=== PATIENT | female | born 1995 | race African-American/Black ===

== ENCOUNTER 2016-07-10 18:21 | Emergency (ER) | payer MEDICAID ==
[2014-11-21 12:01] VITALS: BMI 300.4
[~2016-07-10 18:21] MED LIST: CITRATE OF MAG300 ML PO; DEMEROL 50 M50 MG/ML IM; IBUPROFEN600 MG PO; PERCOCET 5-3251 TAB PO; PHENERGAN25 MG/ML IM
== END 2016-07-10 19:33 | disposition home or self-care (01) ==
LOC: D.ER 18:21
DX: J01.90 Acute sinusitis, unspecified (principal); I10 Essential (primary) hypertension

== ENCOUNTER 2016-07-23 22:22 | Emergency (ER) | payer MEDICAID ==
[2014-11-21 12:01] VITALS: BMI 300.4
[2016-07-23 22:58] LABS: APPEARANCE CLEAR (CLEAR); BILIRUBIN NEGATIVE (NEGATIVE); COLOR YELLOW (YELLOW); GLUCOSE NEGATIVE (NEGATIVE); KETONE NEGATIVE (NEGATIVE); NITRITE NEGATIVE (NEGATIVE); PROTEIN NEGATIVE (NEGATIVE); SPECIFIC GRAVITY 1.015 (1.005-1.020); UROBILINOGEN NORMAL (NORMAL)
[2016-07-23 23:01] LABS: BACTERIA FEW /hpf (NONE SEEN); LEUKOCYTE ESTERASE TRACE (NEGATIVE); RED CELLS - URINE OCC /hpf (0-5)
[2016-07-23 23:02] LABS: MUCUS <1+ /lpf (NONE SEEN)
[2016-07-24 00:21] LABS: BASOPHILS 0.1 % (0.0-2.0); HEMATOCRIT 41.1 % (36.0-48.0); HEMOGLOBIN 14.1 g/dL (12-16); IMMATURE GRANULOCYTES 0.1 % (0-5); LYMPHOCYTES 32.3 % (15-50); MCH 31.6 pg (26.0-34.0); MCHC 34.3 g/dL (31.0-37.0); MCV 92.2 fL (80.0-100.0); MEAN PLATELET VOLUME 10.6 fL (7.4-10.4); MONOCYTES 5.9 % (2-11); NEUTROPHILS 60.6 % (40-80); PLATELET COUNT 258 10x3/uL (130-400); RBC 4.46 10x6/uL (4.00-5.40); RDW 13.1 % (11.5-14.5); WBC 7.1 10x3/uL (4.8-10.8)
[2016-07-24 00:36] LABS: ALBUMIN 3.4 g/dL (3.4-5.0); ALKALINE PHOSPHATASE 60 U/L (46-116); ALT (SGPT) 16 U/L (10-68); BILIRUBIN - TOTAL 0.32 mg/dL (0.2-1.3); CALC OSMOLALITY 272 mosm/kg (275-300); CALCIUM 8.8 mg/dL (8.5-10.1); CARBON DIOXIDE 25.9 mmol/L (21.0-32.0); CHLORIDE - SERUM 103 mmol/L (98-107); CREATININE - SERUM 0.7 mg/dL (0.6-1.3); GLUCOSE 86 mg/dL (74-106); POTASSIUM - SERUM 3.7 mmol/L (3.5-5.1); PROTEIN - SERUM 7.6 g/dL (6.4-8.2); SODIUM 138 mmol/L (136-145); UREA NITROGEN 6 mg/dL (7-18); eGFR NON AFRICAN AMERICAN > 90 mL/min (90-120)
[2016-07-24 01:07] LABS: HCG - QUANTITATIVE (MATERNAL) 9913 mIU/mL
== END 2016-07-24 02:15 | disposition home or self-care (01) ==
LOC: D.ER 22:22
PROVIDERS: Emergency Medicine
DX: R10.9 Unspecified abdominal pain (principal); I10 Essential (primary) hypertension

== ENCOUNTER 2016-09-12 20:50 | Emergency (ER) | payer MEDICAID ==
[2014-11-21 12:01] VITALS: BMI 300.4
[2016-09-12 23:35] LABS: HEMATOCRIT 37.5 % (36.0-48.0); HEMOGLOBIN 12.8 g/dL (12-16); LYMPHOCYTES 30.4 % (15-50); MCH 31.2 pg (26.0-34.0); MCHC 34.1 g/dL (31.0-37.0); MCV 91.5 fL (80.0-100.0); MEAN PLATELET VOLUME 10.7 fL (7.4-10.4); NEUTROPHILS 62.9 % (40-80); PLATELET COUNT 230 10x3/uL (130-400); RDW 12.9 % (11.5-14.5); WBC 7.2 10x3/uL (4.8-10.8)
[2016-09-12 23:46] LABS: APPEARANCE CLEAR (CLEAR); BILIRUBIN NEGATIVE (NEGATIVE); COLOR YELLOW (YELLOW); GLUCOSE NEGATIVE (NEGATIVE); KETONE NEGATIVE (NEGATIVE); LEUKOCYTE ESTERASE NEGATIVE (NEGATIVE); NITRITE NEGATIVE (NEGATIVE); PROTEIN NEGATIVE (NEGATIVE); UROBILINOGEN NORMAL (NORMAL)
[2016-09-12 23:47] LABS: BACTERIA NONE SEEN /hpf (NONE SEEN); CALCIUM OXALATE CRYSTALS 0-5 /hpf (NONE SEEN); EPITHELIAL CELLS 0-5 /hpf (0-5); RED CELLS - URINE 0-5 /hpf (0-5); WHITE CELLS - URINE NSEEN /hpf (0-5)
[2016-09-13] LABS: ALBUMIN 3.1 g/dL (3.4-5.0); ALKALINE PHOSPHATASE 64 U/L (46-116); ALT (SGPT) 17 U/L (10-68); CALC OSMOLALITY 272 mosm/kg (275-300); CARBON DIOXIDE 23.7 mmol/L (21.0-32.0); CHLORIDE - SERUM 103 mmol/L (98-107); CREATININE - SERUM 0.7 mg/dL (0.6-1.3); GLUCOSE 80 mg/dL (74-106); POTASSIUM - SERUM 3.7 mmol/L (3.5-5.1); PROTEIN - SERUM 7.3 g/dL (6.4-8.2); SODIUM 138 mmol/L (136-145); UREA NITROGEN 7 mg/dL (7-18); eGFR NON AFRICAN AMERICAN > 90 mL/min (90-120)
== END 2016-09-13 00:43 | disposition home or self-care (01) ==
LOC: D.ER 20:50
PROVIDERS: Emergency Medicine
DX: R19.7 Diarrhea, unspecified (principal); M54.9 Dorsalgia, unspecified; I10 Essential (primary) hypertension; Z87.891 Personal history of nicotine dependence

== ENCOUNTER → 2016-10-23 21:48 | Outpatient (CLI) | payer MEDICAID ==
[2014-11-21 12:01] VITALS: BMI 300.4
[2016-10-23 22:34] LABS: APPEARANCE HAZY (CLEAR); COLOR DK YELLOW (YELLOW)
[2016-10-23 22:35] LABS: BILIRUBIN NEGATIVE (NEGATIVE); GLUCOSE NEGATIVE (NEGATIVE); KETONE NEGATIVE (NEGATIVE); LEUKOCYTE ESTERASE TRACE (NEGATIVE); NITRITE NEGATIVE (NEGATIVE); PROTEIN NEGATIVE (NEGATIVE); UROBILINOGEN NORMAL (NORMAL)
[2016-10-23 22:41] LABS: BACTERIA MODERATE /hpf (NONE SEEN); CALCIUM OXALATE CRYSTALS 0-5 /hpf (NONE SEEN); HYALINE CAST RARE /lpf (NONE SEEN); MUCUS >1+ /lpf (NONE SEEN); RED CELLS - URINE 0-5 /hpf (0-5); WHITE CELLS - URINE 0-5 /hpf (0-5)
== END | disposition home or self-care (01) ==
LOC: D.LDO 21:48
PROVIDERS: Obstetrics & Gynecology
DX: Z34.83 Encounter for supervision of other normal pregnancy, third trimester (principal); Z3A.30 30 weeks gestation of pregnancy; M54.9 Dorsalgia, unspecified

== ENCOUNTER 2016-11-06 20:01 | Outpatient (CLI) | payer MEDICAID ==
[2014-11-21 12:01] VITALS: BMI 300.4
== END 2016-11-06 20:40 | disposition home or self-care (01) ==
LOC: D.LDO 20:01
DX: O36.8130 Decreased fetal movements, third trimester, not applicable or unspecified (principal); Z3A.32 32 weeks gestation of pregnancy

== ENCOUNTER → 2016-11-18 19:44 | Outpatient (CLI) | payer MEDICAID ==
[2014-11-21 12:01] VITALS: BMI 300.4
[2016-11-18 20:59] LABS: APPEARANCE CLEAR (CLEAR); BILIRUBIN NEGATIVE (NEGATIVE); COLOR YELLOW (YELLOW); GLUCOSE NEGATIVE (NEGATIVE); KETONE NEGATIVE (NEGATIVE); LEUKOCYTE ESTERASE NEGATIVE (NEGATIVE); NITRITE NEGATIVE (NEGATIVE); PROTEIN NEGATIVE (NEGATIVE); SPECIFIC GRAVITY 1.005 (1.005-1.020); UROBILINOGEN NORMAL (NORMAL)
== END | disposition home or self-care (01) ==
LOC: D.LDO 19:44
PROVIDERS: Obstetrics & Gynecology
DX: Z34.83 Encounter for supervision of other normal pregnancy, third trimester (principal); Z3A.34 34 weeks gestation of pregnancy

== ENCOUNTER → 2016-12-06 09:36 | Outpatient (CLI) | payer MEDICAID ==
[2014-11-21 12:01] VITALS: BMI 300.4
== END | disposition home or self-care (01) ==
LOC: D.LDO 09:36
DX: O16.3 Unspecified maternal hypertension, third trimester (principal); Z3A.36 36 weeks gestation of pregnancy

== ENCOUNTER 2016-12-06 19:34 | Outpatient (CLI) | payer MEDICAID ==
[2014-11-21 12:01] VITALS: BMI 300.4
== END 2016-12-06 20:32 | disposition home or self-care (01) ==
LOC: D.LDO 19:34
DX: O16.3 Unspecified maternal hypertension, third trimester (principal); Z3A.36 36 weeks gestation of pregnancy

== ENCOUNTER → 2016-12-17 13:57 | Outpatient (CLI) | payer OTHER ==
[2014-11-21 12:01] VITALS: BMI 300.4
== END | disposition home or self-care (01) ==
LOC: D.LDO 13:57
DX: Z34.83 Encounter for supervision of other normal pregnancy, third trimester (principal); Z3A.38 38 weeks gestation of pregnancy; V43.92XA Unspecified car occupant injured in collision with other type car in traffic accident, initial encounter

== ENCOUNTER → 2016-12-24 22:04 | Outpatient (CLI) | payer OTHER ==
[2014-11-21 12:01] VITALS: BMI 300.4
[2016-12-24 22:29] LABS: APPEARANCE HAZY (CLEAR); BILIRUBIN NEGATIVE (NEGATIVE); COLOR AMBER (YELLOW); GLUCOSE NEGATIVE (NEGATIVE); KETONE NEGATIVE (NEGATIVE); LEUKOCYTE ESTERASE NEGATIVE (NEGATIVE); NITRITE NEGATIVE (NEGATIVE); PROTEIN TRACE mg/dL (NEGATIVE); UROBILINOGEN NORMAL (NORMAL)
[2016-12-24 22:30] LABS: WHITE CELLS - URINE 0-5 /hpf (0-5)
[2016-12-24 22:31] LABS: BACTERIA FEW /hpf (NONE SEEN); CALCIUM OXALATE CRYSTALS 0-5 /hpf (NONE SEEN)
[2016-12-24 22:32] LABS: MUCUS <1+ /lpf (NONE SEEN)
== END | disposition home or self-care (01) ==
LOC: D.LDO 22:04
PROVIDERS: Obstetrics & Gynecology
DX: O26.899 Other specified pregnancy related conditions, unspecified trimester (principal); Z3A.00 Weeks of gestation of pregnancy not specified; M54.5 Low back pain

== ENCOUNTER → 2016-12-29 09:10 | Outpatient (CLI) | payer OTHER ==
[2014-11-21 12:01] VITALS: BMI 300.4
== END | disposition home or self-care (01) ==
LOC: D.LDO 09:10
DX: O48.0 Post-term pregnancy (principal); Z3A.40 40 weeks gestation of pregnancy

== ENCOUNTER → 2017-01-02 13:31 | Outpatient (CLI) | payer OTHER ==
[2014-11-21 12:01] VITALS: BMI 300.4
== END | disposition home or self-care (01) ==
LOC: D.LDO 13:31
DX: O48.0 Post-term pregnancy (principal); Z3A.40 40 weeks gestation of pregnancy

== ENCOUNTER 2017-01-03 09:09 | Inpatient (IN) | payer OTHER ==
[2017-01-03] VITALS (9 sets, daily range): BP systolic 123–146; BP diastolic 70–88; BMI 41.2
[2017-01-03 10:42] LABS: HEMATOCRIT 37.4 % (36.0-48.0); HEMOGLOBIN 12.6 g/dL (12-16); MCH 30.4 pg (26.0-34.0); MCHC 33.7 g/dL (31.0-37.0); MCV 90.3 fL (80.0-100.0); MEAN PLATELET VOLUME 11.9 fL (7.4-10.4); RBC 4.14 10x6/uL (4.00-5.40); RDW 13.2 % (11.5-14.5); WBC 9.7 10x3/uL (4.8-10.8)
--- NOTE | 2017-01-03 19:23 | NUR ---
FUNDUS IS MIDLINE, FIRM AT THE UMBILICUS. MODERATE RUBRA FROM GRISELDA PAD
--- NOTE | 2017-01-03 19:42 | NUR ---
REC'D PT VIA LABOR BED BACK TO ROOM 1257 FOR CONTINUED PP CARE. PT G2 NOW P2 FOLLOWING NVD AT 1642 WITH PP BTL. PT A&OX3. DENIES PAIN AT THIS TIME. PT STATES THAT SHE CAN FEEL LEFT LEG BUT IS NOT ABLE TO MOVE BLE AT THIS TIME. PT TRANSFERED WITH ROLLER BOARD TO BED. VSS. FUNDUS FIRM U1 AND MIDLINE WITH MODERATE AMT RUBRA LOCHIA, NO CLOTS PRESENT. 50 MLS CLEAR LIGHT YELLOW URINE PRESENT IN SANTILLAN UROMETER, SANTILLAN PLACED TO BEDSIDE DRAINAGE. STERISTRIP TO INCISION INTACT, CLEAN, AND DRY WITH NO DRAINAGE. FAMILY MEMBERS IN ROOM AT THIS TIME. PT ORIENTED TO ROOM, BED RAILS, PHONE, AND CL USE. PT UPDATED ON STATUS. PT PASSING FLATUS WITH BOWEL SOUNDS PRESENT. APPLE JUICE GIVEN PER REQUEST. BED IN LOW POSITION WITH UPPER SIDE RAISED X2. CL AND PHONE WITHIN REACH. PLAN OF CARE DISCUSSED WITH PT AND S/O, BOTH VERBALIZE UNDERSTANDING AND DENY QUESTIONS. WILL CONT TO MONITOR AND ASSIST PRN.
--- NOTE | 2017-01-03 20:49 | NUR ---
CALLED TO ROOM VIA CL. PAIN 8/10 INCISIONAL STINGING AND ABD CRAMPING. DEMEROL 100 MG PO GIVEN WITH 30 MG SIVP TORADOL GIVEN. MILK OF MAG GIVEN PER ORDERS ALSO. PT INSTRUCTED ON MEDICATIONS USES, SIDE EFFECTS, AND FREQUENCY, VERBALIZES UNDERSTANDING. VSS. FUNDUS REMAINS FIRM U2 WITH SMALL AMT RUBRA LOCHIA TO PERIPADS. NO CLOTS. PERIPADS CHANGED. PT ABLE TO LIFT BLE OFF OF BED BUT STATES THAT BLE ARE "TINGLY AND HEAVY." 150 MLS CLEAR LIGHT YELLOW URINE EMPTIED FROM UROMETER. PT UPDATED ON STATUS BY RN FROM NBN REPORT. DR. STINSON AT BEDSIDE DISCUSSING PLAN OF CARE FOR AND FOLLOW UP APPOINTMENTS AT TIME OF D/C WITH PT. PT'S AUNT AND S/O REMAIN AT BEDSIDE. SUPPORTIVE AND ATTENTIVE TO PT NEEDS. WILL CONT TO MONITOR AND ASSIST PRN. BED IN LOW POSITION WITH UPPER SIDE RAILS RAISED X2. CL AND PHONE WITHIN REACH.
--- NOTE | 2017-01-03 21:40 | NUR ---
RN TO BEDSIDE. PT IN HIGH FOWLERS POSITION. B/P CUFF REMOVED PER PT REQUEST FOR BREAST FEEDING. PAIN REASSESSMENT COMPLETED. PT DENIES PAIN AT THIS TIME. PT STATES THAT SHE CAN FEEL BLE AND IS ABLE TO LIFT BLE UP OFF OF BED. RN ASSISTED PT WITH GETTING LATCHED TO BREAST, NIPPLE SHEILD PROVIDED. PT'S AUNT REMAINS AT BEDSIDE, SUPPORTIVE AND ATTENTIVE TO PT. BED IN LOW POSITION WITH UPPER SIDE RAILS RAISED X2. CL AND PHONE WITHIN REACH. WILL CONT TO MONITOR AND ASSIST PRN.
--- NOTE | 2017-01-03 22:30 | NUR ---
PT CALLS VIA CL. STATES THAT BREAST FEED FOR 20 MINUTES ON RIGHT BREAST, BUT WHEN SHE SWITCHED BREASTS WILL NOT LATCH EVEN WITH NIPPLE SHIELD. RN ATTEMPTED TO ASSIST WITH LATCH, UNABLE TO GET INFANT TO LATCH. INFANT PLACED SKIN TO SKIN ON PT CHEST. PT REQUESTS TO WAIT ON V/S UNTIL SHE IS FINISHED BONDING WITH INFANT. 70 MLS CLEAR LIGHT YELLOW URINE PRESENT IN UROMETER AND EMPTIED. PT STATES THAT BLE "STILL FEEL TINGLY AND HEAVY." APPLE JUICE AND ICE WATER GIVEN PER REQUEST. DENIES ADDITIONAL NEEDS. BED IN LOW POSITION WITH UPPER SIDE RAILS RAISED X2. CL AND PHONE WITHIN REACH. WILL CONT TO MONITOR AND ASSIST PRN.
--- NOTE | 2017-01-03 23:53 | NUR ---
RN TO BEDSIDE FOR ROUNDS. BACK TO NBN PER REQUEST. PT WITH FULL ROM OF BLE. SANTILLAN REMOVED. PT UP TO BATHROOM. STEADY GAIT NOTED. DENIES LIGHTHEADEDNESS AND DIZZINESS. INSTRUCTED ON PERIBOTTLE USE, DEMONSTRATES UNDERSTANDING STATING THAT SHE USED THE SAME BOTTLE FOR HER PREVIOUS DELIVERY. PT REQUESTED TO SHOWER AT THIS TIME. DENIES PAIN. VSS. FUNDUS FIRM U2 WITH SMALL AMT RUBRA LOCHIA, NO CLOTS. S/O AT RESTING ON COUCH AT BEDSIDE, LINENS PROVIDED.
--- NOTE | 2017-01-04 00:01 | NUR ---
PT INSTRUCTED ON INCISIONAL CARE. VERBALIZES UNDERSTANDING, DENIES QUESTIONS. PT IN SHOWER AT THIS TIME. S/O REMAINS IN ROOM WITH PT DURING SHOWER. INSTRUCTED BOTH ON CL USE WITH UNDERSTANDING VERBALIZED BY BOTH.
--- NOTE | 2017-01-04 00:22 | NUR ---
PT COMPLETES SHOWER. LINENS AND CHUX CHANGED. PT PROVIDED WITH DIPOSABLE PANTIES AND CLEAN PERIPADS. PT BACK TO BED, PAIN 2-3/10, INCISIONAL BURNING AND ABD CRAMPING, DENIES NEED FOR INTERVENTION AT THIS TIME. S/O REMAINS IN ROOM AT BEDSIDE RESTING ON COUCH, ATTENTATIVE AND SUPPORTIVE OF PT. BED IN LOW POSITION WITH UPPER SIDE RAILS RAISED X2. CL AND PHONE WITHIN REACH. WILL CONT TO MONITOR AND ASSIST PRN.
--- NOTE | 2017-01-04 02:46 | NUR ---
RN TO BEDSIDE FOR ROUNDS. PT ON BACK IN SEMI-FOWLERS POSITION. GRIMACE NOTED. PT REPORTS CRAMPING TO ABD AND INCISIONAL BURNING AND SORENESS. PT STATES THAT SHE "HATES TO TAKE PAIN MEDICINE." PT EDUCATED ON PAIN MEDICATION USE FOR SHORT TIME. PT AGREES TO TAKE TORADOL AND DEMEROL. GIVEN PER ORDER. DENIES QUESTIONS AT THIS TIME. S/O REMAINS AT BEDSIDE RESTING ON COUCH. BED IN LOW POSITION WITH UPPER SIDE RAILS RAISED X2. CL AND PHONE WITHIN REACH. WILL CONT TO MONITOR AND ASSIST PRN.
--- NOTE | 2017-01-04 03:30 | NUR ---
PAIN REASSESSMENT COMPLETED. PT RESTING WITH EYES CLOSED. RESPIRATIONS REGULAR AND UNLABORED. NO S/S OF DISTRESS NOTED. S/O REMAINS AT BEDSIDE RESTING. BED IN LOW POSITION WITH UPPER SIDE RAILS RAISED X2. CL AND PHONE WITHIN REACH. WILL CONT TO MONITOR AND ASSIST PRN.
--- NOTE | 2017-01-04 04:19 | NUR ---
RN TO BEDSIDE FOR ROUNDS. PT RESTING WITH EYES CLOSED. RESPIRATIONS REGULAR AND UNLABORED. NO S/S OF DISTRESS NOTED. S/O RESTING ON COUCH AT BEDSIDE. BED IN LOW POSITION WITH UPPER SIDE RAILS RAISED X2. CL AND PHONE WITHIN REACH. WILL CONT TO MONITOR AND ASSIST PRN.
--- NOTE | 2017-01-04 06:02 | NUR ---
RN TO BEDSIDE FOR ROUNDS. PT SITTING UP IN BED BONDING WITH . DENIES NEEDS AT THIS TIME. BED IN LOW POSITION WITH UPPER SIDE RAILS RAISED X2. CL AND PHONE WITHIN REACH. WILL CONTINUE TO MONITOR AND ASSIST PRN.
[2017-01-04 06:34] LABS: HEMATOCRIT 34.2 % (36.0-48.0); HEMOGLOBIN 11.3 g/dL (12-16); MCH 29.9 pg (26.0-34.0); MCV 90.5 fL (80.0-100.0); MEAN PLATELET VOLUME 11.9 fL (7.4-10.4); RBC 3.78 10x6/uL (4.00-5.40); RDW 13.5 % (11.5-14.5)
--- NOTE | 2017-01-04 07:21 | OP ---
PATIENT NAME: LOULOU NICHOLAS MEDICAL RECORD: [id number] :94 LOCATION:[id number] ADMISSION DATE:01/03/17 SURGEON: MIGEL LIMON MD DATE OF OPERATION: 01/03/2017 Delivery Note Spontaneous vaginal delivery of male weighing 8 pounds 6 ounces with 9 and 9 Apgars. No episiotomy, no laceration. Epidural anesthesia. Spontaneous delivery of intact-appearing placenta. ESTIMATED BLOOD LOSS: 400 cc. COMPLICATIONS: None. TRANSINT:[id number] Voice Confirmation ID: [id number] DOCUMENT ID: [id number] MIGEL LIMON MD at 0721 CC: [id number] DICTATION DATE: 01/03/171902 AUTO CARRIER DRIVER: 01/03/172145 ADM IN [place] [id number] [place] [address]
[2017-01-04 07:27] LABS: RAPID PLASMA REAGIN Non Reactive (Non Reactive)
[2017-01-04 08:02] VITALS: BP 135/70
--- NOTE | 2017-01-04 08:02 | NUR ---
RCVD PT FROM Quintin SAXENA RN FOR CONT PP CARE. PT AA0X3 SITTING UP IN BED WITH UP IN ARMS BONDING. FOB ON BEDSIDE COUCH. PT CONSUMED 95% OF MEAL AND REPORTS FINISHED WITH TRAY. SHIFT ASSESSMENT COMPLETE AT THIS TIME. BREATH SOUNDS CLEAR & UNLABORED X2, HR-RRR, PPP, PIV TO LT WRIST SL WITH NO SIGNS OF EYRTHEMA OR EDEMA NOTED TO SITE. FUNDUS FIRM, U/1. INCISION NOTED TO UMBILICUS WITH STERISTRIP IN PLACE C/D/I. BOWEL SOUNDS ACTIVE X4. SMALL LOCHIA RUBRA NOTED TO PERIPAD. PT REPORTS NO CLOTS WHEN VOIDING. PT RATES CURRENT PAIN 4/10 AND INQUIRES ABOUT A LOWER DOSE OF DEMEROL. ADV PT SHE WILL MORE THAN LIKELY D/C WITH 50MG DEMEROL PO. PT DESIRES TO TRY THAT DOSE TO SEE IF IT WILL ELEVIATE PAIN. ADV PT WILL BRING MEDICATION WHEN AVAILABLE. PT VERBALIZED UNDERSTANDING AND DENIES FURTHER NEEDS. BED LOW, WHEELS LOCKED, CL IN REACH. SIDE RAILS UP X2.
--- NOTE | 2017-01-04 08:45 | NUR ---
TORADOL AND 50MG DEMEROL X1 TAB GIVEN FOR PAIN RATED 4/10 AT THIS TIME. PT REQUESTED TO TAKE BOTH AT SAME TIME. PT WITH UP IN ARMS BONDING AND DENIES FURTHER NEEDS. WILL CONT TO MONITOR.
--- NOTE | 2017-01-04 09:13 | NUR ---
PAIN REASSESSMENT COMPLETE. PT RATES PAIN 1/10 AND TOLERABLE. PT CURRENTLY AND DENIES FURTHER NEEDS AT THIS TIME.
--- NOTE | 2017-01-04 10:32 | NUR ---
ROUNDS MADE. PT REQUESTS TO GO TO NBN SO THAT SHE CAN NAP. ADV PT SHE CAN CALL NBN WHEN READY FOR TO COME BACK. PT DENIES FURTHER NEEDS. INFANT TRANSPORTED TO N VIA OPEN CRIB PER THIS RN.
--- NOTE | 2017-01-04 11:41 | NUR ---
PT RESTING, EYES CLOSED, RESP EVEN & UNLABORED. PT LEFT UNDISTURBED AT THIS TIME
--- NOTE | 2017-01-04 12:09 | NUR ---
ROUNDS MADE. PT UP IN BR. FOB AND SIBLING IN ROOM WITH . PT DENIES PAIN OR NEEDS CURRENTLY. WILL CONT TO MONITOR.
--- NOTE | 2017-01-04 13:42 | NUR ---
ROUNDS MADE. PT SITTING UP IN BED WITH INFANT UP IN ARMS. PT REQUESTS BENADRYL FOR CONGESTION. ADV WILL CALL MD TO GET AN ORDER. PT DENIES FURTHER NEEDS.
--- NOTE | 2017-01-04 14:22 | NUR ---
BENADRYL 25MG X1 TAB GIVEN PER PT REQUEST FOR CONGESTION. PT DENIES FURTHER NEEDS.
--- NOTE | 2017-01-04 15:54 | NUR ---
ROUNDS MADE. PT WITH UP IN ARMS BOTTLE FEEDING AT THIS TIME. PT DENIES PAIN OR NEEDS. WILL CONT TO MONITOR.
--- NOTE | 2017-01-04 17:41 | NUR ---
PAIN REASSESSMENT COMPLETE. PT RATES PAIN 2/10 AND TOLERABLE AT THIS TIME. PT STATES "THIS IV IS BOTHERING ME. CAN IT COME OUT?" PIV D/C'D AT THIS TIME WITH CATH TIP INTACT. PRESSURE DRESSING APPLIED TO SITE. PT DENIES FURTHER NEEDS AT THIS TIME.
[2017-01-04 19:20] VITALS: BP 129/76
--- NOTE | 2017-01-04 19:20 | NUR ---
AWAKE DURING INITIAL ROUNDS. INTRODUCED SELF. V/S TAKEN. ASSESSMENT DONE. STATUS POST VAGINAL DELIVERY WITH TUBAL LIGATION--DAY 1. . UMBILICAL LAP INCISION WITH ST-STRIP INTACT. VOIDING WELL, LOCHIA RUBRA MODERATE PER PATIENT. IN HER ARMS. BONDING WELL. FAMILY IN THE ROOM.
--- NOTE | 2017-01-04 21:15 | NUR ---
MILK OF MAG GIVEN SCHED AT HS. SEE E-MAR.
--- NOTE | 2017-01-04 23:04 | NUR ---
CALL LIGHT ANSWERED. PAIN LEVEL 7-8/10 FROM UMBILICAL LAP INCISION POST TUBAL LIGATION. DEMEROL 100mg PO GIVEN FOR PAIN CONTROL.
--- NOTE | 2017-01-05 01:30 | NUR ---
INFANT TO THE NURSERY UNTIL NEXT FEEDING.
--- NOTE | 2017-01-05 03:38 | NUR ---
BROUGHT BABY TO MOM FOR FEEDINGS.
--- NOTE | 2017-01-05 04:40 | NUR ---
CALL LIGHT ANSWERED. PAIN LEVEL "6"/10 FROM UMBILICAL LAP INCISION. DEMEROL 100mg PO GIVEN FOR LELAND MANAGEMENT. V/S RECHECKED. FOB IN THE ROOM HOLDING .
[2017-01-05 04:41] VITALS: BP 130/98
--- NOTE | 2017-01-05 06:00 | NUR ---
SLEPT ON AND OFF DURING THE NIGHT. AWAKE FOR 'S FEEDINGS. CONTINUING PLAN OF CARE. ANTICIPATES DISCHARGE TODAY.
--- NOTE | 2017-01-05 07:30 | NUR ---
PT WAS RECEIVED THIS AM SITTING UP IN BED, HOLDING BABY. SHE OFFERS NO COMPLAINTS AT THIS TIME. VSS. PAIN IS ABOUT A 4. GEN- AWAKE AND ALERT. L;UNGS- CLEAR. HEART- RRR. ABD- SOFT. WITH TENDERNESS. UMBILICAL INCISION NOTED WITH STERI STRIP NOTED. CLEAN , DRY AND INTACT. FUNDUS FIRM AT U2. GRISELDA PAD WITH SMALLL LOCIA RUBRA. EXT- NO EDEMA. BED IS LOW. SIDE RAILS UP X 2 AND CALL LIGHT IN REACH.
[2017-01-05 07:47] VITALS: BP 147/80
--- NOTE | 2017-01-05 08:27 | NUR ---
PT IS BABY. PT REQUEST PAIN MED. DEMEROL 100 MG GIVEN PO.
--- NOTE | 2017-01-05 10:00 | NUR ---
PT IS AMBULATING IN ROOM. SHE IS GOING TO TAKE A SHOWER. SHE TOLERATED WELL. SHE OFFERS NO COMPLAINTS.
[2017-01-05] MEDS ORDERED: MEPERIDINE HCL50 MG PO (10:17)
[2017-01-05] MEDS ORDERED: IBUPROFEN600 MG PO (10:17)
--- NOTE | 2017-01-05 11:31 | NUR ---
PT WAS GIVEN DISCHARGE INSTRUCTIONS. HANDOUTS, FU APPT AND PRESCRIPTIOS GIVEN. PT TAKEN TO VEHICLE BY WHEELCHAIR.
== END 2017-01-05 11:43 | disposition home or self-care (01) | DRG 767 ==
LOC: D.LD 09:09
PROVIDERS: ADMIT Obstetrics & Gynecology
PROC: 0UB70ZZ Excision of Bilateral Fallopian Tubes, Open Approach (ICD-10-PCS; 2017-01-03)
PROC: 10907ZC Drainage of Amniotic Fluid, Therapeutic from Products of Conception, Via Natural or Artificial Opening (ICD-10-PCS; 2017-01-03)
PROC: 10E0XZZ Delivery of Products of Conception, External Approach (ICD-10-PCS; principal; 2017-01-03 13:30)
DX: O48.0 Post-term pregnancy (principal); O69.81X0 Labor and delivery complicated by cord around neck, without compression, not applicable or unspecified; Q82.8 Other specified congenital malformations of skin; Z3A.40 40 weeks gestation of pregnancy; Z37.0 Single live birth